=== PATIENT | male | born 1950 ===

== ENCOUNTER 2023-09-15 07:00 | Inpatient (IN) | payer OTHER, BC ==
[~2023-09-15] VITALS: Ht 167.6 cm; Wt 67.1 kg
[2023-09-15] MEDS ORDERED: ZESTRIL40 M1 PO (08:12)
[2023-09-15] MEDS ORDERED: PROBIOT PO (08:12)
[2023-09-15] MEDS ORDERED: LIPITOR20 MG PO (08:13)
[2023-09-15] MEDS ORDERED: FINASTERIDE5 MG PO (08:13)
[2023-09-15] MEDS ORDERED: NESINA25 MG PO (08:14)
[2023-09-15] MEDS ORDERED: CHLORTHALIDONE25 MG PO (08:14)
[2023-09-15 08:47] LABS: HEMATOCRIT 40.8 % (39.0-48.0); HEMOGLOBIN 13.9 g/dL (13-16.00); MEAN CELL VOLUME 89.6 fL (80.0-100.00); MEAN CORPUSCULAR HEMOGLOBIN 30.6 pg (27.00-32.0); MEAN CORPUSCULAR HGB CONC 34.1 g/dl (32.0-36.0); PLATELET COUNT 209 K/uL (150-450); RED BLOOD COUNT 4.55 M/uL (4.00-6.00); RED CELL DISTRIBUTION WIDTH 13.9 % (11.5-14.5)
[2023-09-15 08:50] LABS: PH,URINE 5.5 (5.0-8.0); URINE APPEARANCE Clear; URINE BILIRRUBIN Negative (NEGATIVE); URINE BLOOD Negative; URINE COLOR Yellow; URINE GLUCOSE Negative (NEGATIVE); URINE LEUKOCYTE Negative; URINE NITRATE Negative; URINE PROTEIN Negative (NEGATIVE); URINE UROBILINOGEN 0.2 E.U./dl
[2023-09-15 08:53] LABS: URINE BACTERIA 15.1 uL (0.0-1933); URINE EPITHELIAL CELLS 2.1 uL (0.0-38.8); URINE RBC 2.1 uL (0.0-20.8); URINE WBC 2.3 uL (0.0-23.2)
[2023-09-15 09:10] LABS: INR 0.98; PARTIAL THROMBOPLASTIN TIME 26.9 SECONDS (22.0-34.0); PROTHROMBIN TIME 10.3 SECONDS (9.0-11.5)
[2023-09-15 09:23] LABS: CALCIUM 9.7 mg/dL (8.5-10.1); CREATININE SERUM 1.3 mg/dL (0.70-1.30); GFR 53.96; POTASSIUM 4.44 mEq/L (3.5-5.1)
[2023-09-23 07:41] LABS: HEMATOCRIT 31.6 % (39.0-48.0); HEMOGLOBIN 10.7 g/dL (13-16.00); MEAN CELL VOLUME 87.9 fL (80.0-100.00); MEAN CORPUSCULAR HEMOGLOBIN 29.8 pg (27.00-32.0); MEAN CORPUSCULAR HGB CONC 33.9 g/dl (32.0-36.0); PLATELET COUNT 155 K/uL (150-450); RED BLOOD COUNT 3.59 M/uL (4.00-6.00); RED CELL DISTRIBUTION WIDTH 13.6 % (11.5-14.5)
[2023-09-23 08:15] LABS: ALBUMIN 2.8 gm/dL (3.4-5.0); CALCIUM 8.5 mg/dL (8.5-10.1); CREATININE SERUM 1.46 mg/dL (0.70-1.30); GFR 47.2; PHOSPHOROUS 3.1 mg/dL (2.5-4.9); POTASSIUM 4.57 mEq/L (3.5-5.1)
[2023-09-23 12:11] LABS: HEMATOCRIT 35.2 % (39.0-48.0); HEMOGLOBIN 11.5 g/dL (13-16.00); RED BLOOD COUNT 3.96 M/uL (4.00-6.00)
== END 2023-09-23 13:39 | disposition home or self-care (01) | DRG 708 ==
LOC: SURH 09-22 05:45 → O/R 09-22 05:45 → SURG 09-22 07:00 → SURH 09-22 12:22
PROVIDERS: ADMIT Urology; ATTEND Urology
PROC: 8E0W4CZ Robotic Assisted Procedure of Trunk Region, Percutaneous Endoscopic Approach (ICD-10-PCS; 2023-09-22)
PROC: 0VT04ZZ Resection of Prostate, Percutaneous Endoscopic Approach (ICD-10-PCS; principal; 2023-09-22 07:00)
DX: C61 Malignant neoplasm of prostate (principal); Z20.822 Contact with and (suspected) exposure to COVID-19
CPT/HCPCS: 55866; S2900